=== PATIENT | male | born 1995 | race American Indian/Alaskan Native ===

== ENCOUNTER 2021-09-22 11:35 | Emergency (ER) | payer SELFPAY ==
[2021-09-22 11:43] VITALS: BP 155/79
[2021-09-22] MEDS ORDERED: traMADol 50 MG TAB PO ONE (13:11)
[2021-09-22] MEDS ORDERED: IBUPROFEN 800 MG TAB PO STA (13:11)
--- NOTE | 2021-09-22 13:12 | Emergency Department Report ---
ED General Adult HPI - General Chief complaint: Earache Stated complaint: EAR ACHE Time Seen by Provider: 09/22/21 11:57 Source: patient Mode of arrival: Ambulatory Limitations: No Limitations - History of Present Illness Initial comments: 26-year-old -[place] male patient presents with complaints of left ear pain x1 month, worsening over the past day. He rates his current pain as a 10/10 in severity. He denies any drainage from the ear and states the eardrops he has been using are not helping. No past medical history or known drug allerg ies per patient. He states he has also has some decrease in hearing in the left ear. Patient also denies any cough, headache, vision changes, or throat pain. - Related Data Previous Rx's Medication Instructions Recorded Last Taken Type Amoxicillin/Potassium Clav 1 each PO BID 10 Days #20 tablet 09/22/21 Unknown Rx [Augmentin 875-125 Tablet] Ibuprofen [Motrin 800 MG tab] 800 mg PO Q8HR PRN #20 tablet 09/22/21 Unknown Rx traMADoL [Ultram 50 MG tab] 50 mg PO Q4HR PRN #6 tablet 09/22/21 Unknown Rx Allergies Allergy/AdvReac Type Severity Reaction Status Date / Time No Known Allergies Allergy Verified 09/22/21 11:42 ED Review of Systems ROS: Stated complaint: EAR ACHE Other details as noted in HPI Constitutional: denies: chills, diaphoresis, fever, malaise, weakness Eyes: denies: eye pain, vision change ENT: ear pain. denies: throat pain Respiratory: denies: cough Skin: denies: lesions, change in color Neurological: denies: headache, numbness, paresthesias Hematological/Lymphatic: denies: swollen glands ED Past Medical Hx - Medications Home Medications: Home Medications Medication Instructions Recorded Confirmed Last Taken Type Amoxicillin/Potassium Clav 1 each PO BID 10 Days #20 tablet 09/22/21 Unknown Rx [Augmentin 875-125 Tablet] Ibuprofen [Motrin 800 MG tab] 800 mg PO Q8HR PRN #20 tablet 09/22/21 Unknown Rx traMADoL [Ultram 50 MG tab] 50 mg PO Q4HR PRN #6 tablet 09/22/21 Unknown Rx ED Physical Exam - General Limitations: No Limitations General appearance: alert, in no apparent distress, obese - Head Head exam: Present: atraumatic, normocephalic - Eye Eye exam: Present: normal appearance - Expanded ENT Exam Expanded Ear exam: Present: other (Minimal ear canal bleeding noted; no posterior TM mass noted) TM/Canal exam: Erythema: Left TM (Mild) - Neck Neck exam: Present: normal inspection. Absent: lymphadenopathy - Respiratory Respiratory exam: Absent: respiratory distress - Cardiovascular Cardiovascular Exam: Present: regular rate - Neurological Exam Neurological exam: Present: alert, oriented X3 - Psychiatric Psychiatric exam: Present: normal affect, normal mood - Skin Skin exam: Present: warm, dry, intact, normal color. Absent: rash ED Course Vital Signs 09/22/21 11:42 Temperature 98.1 F Pulse Rate 99 H Respiratory 14 Rate Blood Pressure 155/79 [Left] O2 Sat by Pulse 100 Oximetry ED Medical Decision Making - Medical Decision Making 26-year-old -[place] male patient presents with complaints of left ear pain x1 month, worsening over the past day. He rates his current pain as a 10/10 in severity. He denies any drainage from the ear and states the eardrops he has been using are not helping. No past medical history or known drug allergies per patient. He states he has also has some decrease in hearing in the left ear. Patient also denies any cough, headache, vision changes, or throat pain. Erythema of the left TM noted without bulging or masses. Augmentin given for otitis media. Given duration of symptoms and hearing loss for a month, I do recommend patient follows up with ENT within a week for further evaluation. He is otherwise well-appearing and stable for discharge home. Patient also instructed to follow-up primary care for repeat blood pressure. Strict return precautions were discussed in detail with patient who verbalizes understanding Critical care attestation.: If time is entered above; I have spent that time in minutes in the direct care of this critically ill patient, excluding procedure time. ED Disposition Clinical Impression: Otitis media, Decreased hearing, Elevated blood pressure reading in office without diagnosis of hypertension Disposition: 01 HOME / SELF CARE / HOMELESS Is pt being admited?: No Condition: Stable Instructions: Otitis Media, Adult, [id number] Additional Instructions: Please follow-up with your primary care doctor within 2 to 3 days for repeat of your blood pressure Prescriptions: Amoxicillin/Potassium Clav [Augmentin 875-125 Tablet] 1 each PO BID 10 Days #20 tablet Ibuprofen [Motrin 800 MG tab] 800 mg PO Q8HR PRN #20 tablet PRN Reason: pain traMADoL [Ultram 50 MG tab] 50 mg PO Q4HR PRN #6 tablet PRN Reason: Pain , Severe (7-10) Referrals: [facility] [Provider Group] - 3-5 Days (Blood pressure) LAUREANO HWANG MD [Staff Physician] - 3-5 Days (Blood pressure) PRIMARY CAREMD [Primary Care Provider] - 3-5 Days (Ear pain and decreased hearing) Forms: Work/School Release Form(ED)
== END 2021-09-22 14:06 | disposition home or self-care (01) ==
LOC: ED 11:35
DX: H66.92 Otitis media, unspecified, left ear (principal); R03.0 Elevated blood-pressure reading, without diagnosis of hypertension
CPT/HCPCS: 99282